=== PATIENT | male | born 1990 | race African-American/Black ===

== ENCOUNTER 2017-03-30 10:05 | Emergency (ER) | payer OTHER ==
[~2017-03-30] VITALS: Ht 193 cm; Wt 100.0 kg
[2017-03-30 11:31] VITALS: BP 124/67
== END 2017-03-30 11:39 | DRG 605 ==
LOC: ED 10:05
PROC: 0HQGXZZ Repair Left Hand Skin, External Approach (ICD-10-PCS; principal; 2017-03-30)
DX: S61.412A Laceration without foreign body of left hand, initial encounter (principal); W18.39XA Other fall on same level, initial encounter; Y92.149 Unspecified place in prison as the place of occurrence of the external cause